=== PATIENT | male | born 1945 | race Hispanic/Latino ===

== ENCOUNTER → 2020-03-19 | Day surgery (SDC) | payer MEDICARE, OTHER ==
[2020-03-16 16:00] LABS: BASOPHILS % 0.8 % (0.0-1.0); EOSINOPHILS % 0.8 % (0.0-6.0); HEMATOCRIT 36.6 % (38.2-49.6); HEMOGLOBIN 11.2 g/dL (14.0-18.0); LYMPHOCYTES # (AUTO) 1.1 (1.0-3.2); LYMPHOCYTES % 21.3 % (18.0-39.1); MEAN CORPUSCULAR HEMOGLOBIN 29.1 pg (28-32); MEAN CORPUSCULAR HGB CONC 30.6 g/dL (31-35); MEAN CORPUSCULAR VOLUME 95.1 fL (81-99); MONOCYTES # (AUTO) 0.5 (0.2-0.8); MONOCYTES % 9.4 % (4.4-11.3); NEUTROPHILS # (AUTO) 3.4 (2.1-6.9); NEUTROPHILS % 67.5 % (38.7-80.0); PLATELET COUNT 156 x10e3/uL (140-360); RED BLOOD COUNT 3.85 x10e6/uL (4.3-5.7); RED CELL DISTRIBUTION WIDTH 15.6 % (11.7-14.4)
[~2020-03-19] MED LIST: AMIODARONE HCL200 MG PO; AMLODIPINE BESYL5 MG; ASPIRIN325 MG PO; CARVEDILOL3.125 MG PO; CRESTOR10 MG PO; CYCLOBENZAPRINE10 MG; FENOFIBRATE54 MG; FUROSEMIDE20 MG PO; GLIMEPIRIDE2 MG PO; HYDROCODONE PO; LIDOCAINE HCL 2% LOCAL INJ 5 ML SDV VIAL INJ ONE; LISINOPRIL40 MG; MELOXICAM7.5 MG PO; METOPROLOL SUCC50 MG; NEXIUM40 MG; NEXIUM40 MG PO; PLAVIX75 MG PO; PROPOFOL IV EMULSION 10 MG/ML 20 ML VIAL ONE; SIMETHICONE 40 MG/0.6 ML BTL ONE; SIMVASTATIN80 MG PO; ULTRACET TABLE1 EACH PO; ULTRAM50 MG PO; XARELTO10 MG PO
[2020-03-19 07:40] VITALS: BP 127/62
== END | disposition home or self-care (01) ==
LOC: OR 05:27
PROVIDERS: ATTEND Internal Medicine Gastroenterology
DX: R63.4 Abnormal weight loss (principal); K29.50 Unspecified chronic gastritis without bleeding; I10 Essential (primary) hypertension; Z71.3 Dietary counseling and surveillance; I25.10 Atherosclerotic heart disease of native coronary artery without angina pectoris; E11.9 Type 2 diabetes mellitus without complications; Z01.810 Encounter for preprocedural cardiovascular examination; Z01.812 Encounter for preprocedural laboratory examination; Z11.59 Encounter for screening for other viral diseases; Z79.84 Long term (current) use of oral hypoglycemic drugs; Z79.02 Long term (current) use of antithrombotics/antiplatelets; Z95.5 Presence of coronary angioplasty implant and graft
CPT/HCPCS: 36415 ×2; 43239; 82948; 85025; 88305; 88312; 93005; J2001; J2704; U0002

== ENCOUNTER 2025-01-30 10:50 | Inpatient (IN) | payer MEDICARE ==
[2025-01-29 20:00] VITALS: BP 138/78; PULSE 72; RESP 20; TEMP 98.2; O2SAT 97
[~2025-01-30] VITALS: Ht 170.2 cm; Wt 56.7 kg
[~2025-01-30 10:50] MED LIST changes: -FENOFIBRATE54 MG; +FENOFIBRATE54 MG PO; +FUROSEMIDE40 MG PO; -LIDOCAINE HCL 2% LOCAL INJ 5 ML SDV VIAL INJ ONE; +PAXIL10 MG PO; -PROPOFOL IV EMULSION 10 MG/ML 20 ML VIAL ONE; -SIMETHICONE 40 MG/0.6 ML BTL ONE; +TRADJENTA5 MG PO
[2025-01-30 11:06] VITALS: TEMP 97.2
[2025-01-30 11:49] LABS: BASOPHILS % 1.0 % (0.0-1.0); EOSINOPHILS % 1.2 % (0.0-6.0); LYMPHOCYTES % 20.0 % (18.0-39.1); MONOCYTES % 10.0 % (4.4-11.3); NEUTROPHILS % 67.6 % (38.7-80.0); RED CELL DISTRIBUTION WIDTH 18.1 % (11.7-14.4)
[2025-01-30 12:15] LABS: INR 1.31
[2025-01-30 12:27] LABS: EST GLOMERULAR FILTRATION RATE 16.0 ML/MIN (>=60)
[2025-01-30 14:16] LABS: LEUKOCYTE ESTERASE ,URINE NEGATIVE (NEGATIVE); PROTEIN,URINE DIPSTICK NEGATIVE (NEGATIVE); URINE UROBILINOGEN 0.2 mg/dL (0.2 - 1)
[2025-01-30 14:30] LABS: EPITHELIAL CELLS,URINE RARE /LPF; WBC,URINE (MAN) 0-5 /HPF (0-5)
[2025-01-30] MEDS ORDERED: MIDODRINE HCL 5 MG TABLET PO PRN (15:45)
[2025-01-30] MEDS: FUROSEMIDE INJ 10 MG/ML 4 ML VIAL IV ONE (16:02)
[2025-01-30] MEDS ORDERED: FUROSEMIDE INJ 10 MG/ML 4 ML VIAL ONE (16:04)
[2025-01-30 16:10] VITALS: PULSE 60; RESP 18
[2025-01-30 19:11] VITALS: BP 106/65; PULSE 69; RESP 18; TEMP 96.5; O2SAT 100
[2025-01-30] MEDS: CARVEDILOL 12.5 MG TAB PO SCH (20:44)
[2025-01-30] MEDS: FUROSEMIDE INJ 10 MG/ML 4 ML VIAL IV SCH (20:44)
[2025-01-30] MEDS ORDERED: CETIRIZINE HCL10 MG PO (22:47)
[2025-01-31] VITALS (11 sets, daily range): BP systolic 90–103; BP diastolic 57–70; PULSE 59–71; RESP 15–18; TEMP 97.3–97.8; O2SAT 97–100
[2025-01-31] MEDS ORDERED: ONDANSETRON HCL INJ 2MG/ML 2ML 2 MG/ML VIAL IV PRN (01:15)
[2025-01-31] MEDS ORDERED: ACETAMINOPHEN 325 MG TAB PO PRN (01:15)
[2025-01-31] MEDS ORDERED: DEXTROSE 50% SYRINGE 50 ML IV PRN (01:15)
[2025-01-31] MEDS ORDERED: HYDRALAZINE HCL 20 MG/ML VIAL IV PRN (01:15)
[2025-01-31] MEDS ORDERED: GUAIFENESIN/DEXTROMETHORPHAN LIQD 5 ML UDC PO PRN (01:15)
[2025-01-31] MEDS ORDERED: ALBUTEROL SULF 0.083% NEB SOLN 3 ML NEB NEB PRN (01:15)
[2025-01-31] MEDS ORDERED: DOCUSATE SODIUM 100 MG CAP PO PRN (01:15)
[2025-01-31] MEDS: MELATONIN 3 MG TAB PO PRN (01:33)
[2025-01-31 06:10] LABS: BASOPHILS % 1.1 % (0.0-1.0); EOSINOPHILS % 1.1 % (0.0-6.0); LYMPHOCYTES % 19.6 % (18.0-39.1); MONOCYTES % 12.3 % (4.4-11.3); NEUTROPHILS % 65.5 % (38.7-80.0); RED CELL DISTRIBUTION WIDTH 18.3 % (11.7-14.4)
[2025-01-31] MEDS: PANTOPRAZOLE SOD 40 MG TABEC PO SCH (06:13)
[2025-01-31 06:45] LABS: EST GLOMERULAR FILTRATION RATE 19.0 ML/MIN (>=60)
[2025-01-31] MEDS: INSULIN REGULAR, HUMAN 100 UNIT/1 ML SQ SCH (07:30)
[2025-01-31] MEDS ORDERED: PANTOPRAZOLE SOD 40 MG TABEC PO SCH (09:00)
[2025-01-31] MEDS: FOLIC ACID/CYANOCOB/PYRIDOXINE TAB PO SCH (09:05)
[2025-01-31] MEDS: FENOFIBRATE 145 MG TAB PO SCH (09:05)
[2025-01-31] MEDS: SIMVASTATIN 40 MG TAB PO SCH (09:05)
[2025-01-31] MEDS: POTASSIUM CHLORIDE 20 MEQ TAB CR PO ONE (09:06)
[2025-01-31] MEDS: AMIODARONE HCL 200 MG TAB PO SCH (09:06)
[2025-01-31] MEDS ORDERED: PAROXETINE HCL10 MG PO (16:25)
[2025-01-31] MEDS: POTASSIUM CHLORIDE 20 MEQ TAB CR PO SCH (16:44)
[2025-01-31] MEDS: RIVAROXABAN 15 MG TABLET PO SCH (16:44)
[2025-02-01] VITALS (9 sets, daily range): BP systolic 103–107; BP diastolic 55–67; PULSE 64–76; RESP 17–18; TEMP 97.3–97.7; O2SAT 93–100
[2025-02-01 07:08] LABS: EST GLOMERULAR FILTRATION RATE 18.0 ML/MIN (>=60)
[2025-02-01] MEDS: FUROSEMIDE INJ 10 MG/ML 4 ML VIAL IV SCH (10:02)
[2025-02-02] VITALS (7 sets, daily range): BP systolic 99–113; BP diastolic 54–68; PULSE 62–80; RESP 17–18; TEMP 97.4–98.4; O2SAT 96–100
[2025-02-02 07:27] LABS: BASOPHILS % 1.1 % (0.0-1.0); EOSINOPHILS % 1.8 % (0.0-6.0); LYMPHOCYTES % 21.1 % (18.0-39.1); MONOCYTES % 9.5 % (4.4-11.3); NEUTROPHILS % 66.5 % (38.7-80.0); RED CELL DISTRIBUTION WIDTH 18.6 % (11.7-14.4)
[2025-02-02 07:53] LABS: EST GLOMERULAR FILTRATION RATE 21.0 ML/MIN (>=60)
[2025-02-03] VITALS (7 sets, daily range): BP systolic 98–106; BP diastolic 59–65; PULSE 60–75; RESP 18; TEMP 97.5–98; O2SAT 96–100
[2025-02-03 06:16] LABS: BASOPHILS % 0.8 % (0.0-1.0); EOSINOPHILS % 1.4 % (0.0-6.0); LYMPHOCYTES % 24.5 % (18.0-39.1); MONOCYTES % 7.3 % (4.4-11.3); NEUTROPHILS % 66.0 % (38.7-80.0); RED CELL DISTRIBUTION WIDTH 18.6 % (11.7-14.4)
[2025-02-03 06:43] LABS: EST GLOMERULAR FILTRATION RATE 20.0 ML/MIN (>=60)
[2025-02-03] MEDS ORDERED: PAROXETINE HCL10 MG PO (18:22)
[2025-02-03] MEDS ORDERED: MIDODRINE HCL5 MG PO (18:22)
== END 2025-02-03 19:45 | disposition home or self-care (01) | DRG 291 ==
LOC: ER 11:12 → ERHOLD 13:27 → MED/SURG3 19:16
PROVIDERS: ADMIT Internal Medicine; ATTEND Internal Medicine
DX: I13.0 Hypertensive heart and chronic kidney disease with heart failure and stage 1 through stage 4 chronic kidney disease, or unspecified chronic kidney disease (principal); I50.23 Acute on chronic systolic (congestive) heart failure; N17.9 Acute kidney failure, unspecified; I48.20 Chronic atrial fibrillation, unspecified; D69.6 Thrombocytopenia, unspecified; Z79.01 Long term (current) use of anticoagulants; E11.22 Type 2 diabetes mellitus with diabetic chronic kidney disease; E11.65 Type 2 diabetes mellitus with hyperglycemia; N18.32 Chronic kidney disease, stage 3b; D63.1 Anemia in chronic kidney disease; D72.819 Decreased white blood cell count, unspecified; I42.9 Cardiomyopathy, unspecified; E78.5 Hyperlipidemia, unspecified; R06.00 Dyspnea, unspecified; I25.10 Atherosclerotic heart disease of native coronary artery without angina pectoris; F41.9 Anxiety disorder, unspecified; K21.9 Gastro-esophageal reflux disease without esophagitis; E83.42 Hypomagnesemia; R74.01 Elevation of levels of liver transaminase levels; J30.9 Allergic rhinitis, unspecified; Z79.85 Long-term (current) use of injectable non-insulin antidiabetic drugs; Z95.810 Presence of automatic (implantable) cardiac defibrillator; Z95.5 Presence of coronary angioplasty implant and graft
CPT/HCPCS: 36415; 71045; 80048; 80053; 81001; 81003; 82550; 82948; 83735; 83880; 84484; 85025; 85610; 85730; 87086; 93005; 94760; 94799; 96361; 96372; 99284; J1938; J2470